=== PATIENT | female | born 1975 | race Caucasian/White ===

== ENCOUNTER 2024-03-02 12:37 | Emergency (ER) | payer OTHER, SELFPAY ==
[2024-03-02 12:44] VITALS: BP 121/81
[2024-03-02 13:03] LABS: % Basophils 0.8 % (0-2); % Eosinophils 1.9 % (0-6); % Immature Granulocytes 0.2 % (0-0.5); % Lymphocytes 26.8 % (20.5-51.1); % Monocytes 7.6 % (1.7-9.3); % Neutrophils 62.7 % (42.2-75.2); Absolute Basophils 0.1 10^3/uL (0-0.2); Absolute Eosinophils 0.1 10^3/uL (0-0.7); Absolute Lymphocytes 1.6 10^3/uL (1.2-3.4); Absolute Monocytes 0.5 10^3/uL (0.1-0.6); Absolute Neutrophils 3.7 10^3/uL (1.4-6.5); Hematocrit 41.1 % (37.0-47.0); Hemoglobin 14.3 g/dL (12.0-16.0); Mean Corp Hgb Conc. 34.8 g/dL (33.0-37.0); Mean Corpuscular Hgb 31.8 pg (27.0-31.0); Mean Corpuscular Volume 91.5 fL (81.0-99.0); Mean Platelet Volume 9.4 fL (7.4-10.4); Nucleated Red Blood Cells % 0 %; Platelet Count 194 10^3/uL (130-400); Red Blood Cell Count 4.49 10^6/uL (4.20-5.40); Red Cell Dist. Width 11.6 % (11.5-14.5); White Blood Cell Count 5.9 10^3/uL (4.8-10.8)
[2024-03-02 13:14] LABS: HCG, Serum Qualitative Screen Negative
[2024-03-02 13:17] LABS: ALT (SGPT) 21 U/L (0-35); AST (SGOT) 25 U/L (14-36); Albumin 4.5 g/dl (3.5-5.0); Alkaline Phosphatase 73 U/L (38-126); Blood Urea Nitrogen 11 mg/dl (7-17); Calcium 9.1 mg/dl (8.4-10.2); Carbon Dioxide 28 mmol/L (22-30); Chloride 102 mmol/L (98-107); Glucose 88 mg/dl (70-99); Potassium 4.1 mmol/L (3.5-5.1); Sodium 137 mmol/L (135-145); Total Bilirubin 0.6 mg/dl (0.2-1.3); Total Protein 6.9 g/dl (6.3-8.2); eGFR > 60.00
[2024-03-02 13:28] LABS: Troponin I < 0.012 ng/ml
[2024-03-02] MEDS: TYLENOL 1000 MG PO (14:04)
[2024-03-02 14:08] VITALS: BP 107/65; BMI 25.1
--- NOTE | 2024-03-02 14:08 | ED.GENMED ---
History of Present Illness
General
Chief Complaint: Chest Pain
Source: patient
Exam Limitations: none
Time Seen by Provider: 03/02/24 13:52
Nursing documentation reviewed up to this point in time: agreed with
History of Present Illness
History of Present Illness:
48-year-old female past medical history of factor V Leiden, anxiety presenting to the emergency department today with concerns of left-sided chest achy discomfort after drinking her coffee yesterday. Ongoing throughout the day yesterday but
slightly improved throughout the day this morning had ongoing mild symptoms no associated shortness of breath nausea vomiting diaphoresis. Able to do a Pilates class today without significant worsening of symptoms. Denies any recent trauma surgery
immobilization, estrogen product usage. No leg swelling.
Review of Systems
Review of Systems
Allergies reviewed?: Yes
All Other Systems: ROS reviewed and negative except as documented in HPI and ROS
Phy Exam
Physical Exam
Physical Exam:
GENERAL: Alert , in no apparent distress
EYE: pupils equal and reactive
NECK: Supple, no significant adenopathy.
ENT: o/p clr, mmm.
CARDIAC: Regular rate and rhythm .
LUNGS: Clear breath sounds bilaterally, no acute respiratory distress, no wheezes/rales/rhonchi
ABDOMEN: Soft, without focal tenderness, no r/g, no cvat
NEUROLOGICAL: Alert and oriented, no focal neuro deficits
SKIN: Warm and dry, skin intact.
MUSCULOSKELETAL: No edema, well perfused.
PSYCH: Normal and appropriate interaction.
Scores
Heart Score for Chest Pain Patients
STEMI patient?: No
History: Slightly or Non-Suspicious
ECG: Normal
Age: >45 - <65 years
Risk Factors: No Risk Factors
Troponin: </= Normal Limit
Heart Score for Chest Pain Patients: 1
Heart Score Risk: 2.5% MACE over next 6 weeks
Course
Orders/Labs/Results
Orders:
Orders
03/02/24 12:38
EKG [Electrocardiogram (*1)] Urgent
Reason for Study: Chest Pain
EKG- Treatment ONCE
03/02/24 12:48
Test Result ONCE
03/02/24 12:52
Complete Blood Count/With Diff Urgent
Comprehensive Metabolic Panel Urgent
HCG, Serum Qualitative Screen Urgent
Troponin I Urgent
03/02/24 14:00
Acetaminophen [Tylenol] 1,000 mg PO NOW STA
Chest [CR Chest - 2 Views ] Urgent
Comment:
Reason For Exam: cp left sided
03/02/24 14:02
D-Dimer Urgent
Abnormal Lab Results
03/02/24
12:52
MCH 31.8 H pg
(27.0-31.0)
03/02/24 12:52
03/02/24 12:52
Vital Signs
Initial and Last Documented VS:
Initial Vital Signs
Temp Pulse Resp BP Pulse Ox
97.8 F 71 18 121/81 100
03/02/24 12:44 03/02/24 12:44 03/02/24 12:44 03/02/24 12:44 03/02/24 12:44
Last Documented Vital Signs
Temp Pulse Resp BP Pulse Ox
97.5 F 69 19 113/70 100
03/02/24 14:08 03/02/24 15:12 03/02/24 15:12 03/02/24 15:12 03/02/24 14:08
MDM/Problems Addressed
MDM/Problems Addressed:
48-year-old female presenting to the emergency department today with concerns of left-sided chest discomfort scribed as achy no associated shortness of breath no nausea vomiting diaphoresis. No recent trauma surgery immobilization, leg swelling,
estrogen product usage. Does have a history of factor V Leiden therefore we did get a D-dimer. EKG without signs of ischemia labs unremarkable troponin negative. Dimer negative patient no distress throughout ER stay. Plan for outpatient
follow-up. Return precautions given.
*Critical Care Note
Total Time (30-74mins, 75-104mins- exclusive of procedures): Not Applicable
ED Attending Note
-
Portions of this chart may have been created with voice recognition software.� Occasional wrong word or��sound alike� substitutions may have occurred due to the inherent limitations of voice recognition software.
Discharge Plan
Departure
Patient Disposition: Home (Routine Discharge)
Date of Disposition: 03/02/24
Time of Disposition: 15:17
Patient with high blood pressure during this ER visit?: No
Condition: Good
Covid-19: Not Applicable
Discharge Problem:
Chest pain
Instructions: Chest Pain DCA Follow Up
Prescriptions:
No Action
bupropion HCl 100 mg Tablet
100 mg PO BID
alprazolam 0.25 mg Tablet
0.25 mg PO BID PRN (Reason: anxiety)
Activity Restrictions/Additional Instructions:
You came to the emergency department today with concerns of chest discomfort. Here you had a reassuring assessment. Please follow up closely with cardiology. Return to the emergency department any worsening, new or concerning symptoms.
Interventions
Interventions:
*Risk Screen - Suicide Last Done: 03/02/24 12:44
*General Assessment Last Done: 03/02/24 12:44
*Neglect/Abuse Screening Last Done: 03/02/24 12:44
ED- Fall Risk Assessment Last Done: 03/02/24 14:08
*ED COVID-19 Vaccine History Last Done: 03/02/24 14:08
ED- Cardiac Assessment Last Done: 03/02/24 14:08
Discharge Date and Time
Print Language: CAMBODIAN
[2024-03-02 15:05] LABS: D-Dimer < 0.27 ug/mlFEU (0.00-0.50)
[2024-03-02 15:12] VITALS: BP 113/70
== END 2024-03-02 15:38 | disposition home or self-care (01) ==
LOC: EMR 12:37
PROVIDERS: Emergency Medicine; Physician Assistant; EMERGENCY PHYSICIAN Emergency Medicine
DX: R07.89 Other chest pain (principal); D68.51 Activated protein C resistance
CPT/HCPCS: 99285; 71046; 80053; 84484; 84703; 85025; 85379; 93005